=== PATIENT | female | born 1990 | race Caucasian/White ===

== ENCOUNTER 2019-09-30 | Emergency (ER) | payer BC, OTHER | END 2019-09-30 12:26 | disposition home or self-care (01) | DX: S39.012A Strain of muscle, fascia and tendon of lower back, initial encounter (principal); X50.9XXA Other and unspecified overexertion or strenuous movements or postures, initial encounter; Y93.89 Activity, other specified; Z88.2 Allergy status to sulfonamides; Y92.9 Unspecified place or not applicable | CPT/HCPCS: 80053; 83690; 84703; 85025; J1100; J1885; J7030 ==